=== PATIENT | female | born 1960 | race Caucasian/White ===

== ENCOUNTER 2020-03-08 11:10 | Inpatient (IN) | payer MEDICAID, OTHER ==
[~2020-03-08] VITALS: Ht 160 cm; Wt 60.5 kg
[2020-03-08] MEDS ORDERED: methylPREDNISolone SOD SUCC 125 MG/2 ML VL IV ONE (11:30)
[2020-03-08] MEDS ORDERED: MORPHINE SULFATE 4 MG/ML SYR/VIAL IV ONE (11:30)
[2020-03-08] MEDS ORDERED: AZITHROMYCIN 500MG/ 250ML 250 ML IV ONE (11:30)
[2020-03-08] MEDS ORDERED: ONDANSETRON HCL 4 MG/2 ML VIAL IV ONE (11:30)
[2020-03-08] MEDS ORDERED: ASCORBIC ACID 500 MG TAB PO ONE (11:30)
[2020-03-08] MEDS ORDERED: PANTOPRAZOLE 40 MG/10 ML VIAL INJ IV ONE (11:30)
[2020-03-08] MEDS ORDERED: ZINC SULFATE 220mg CAP or TAB PO ONE ×2 (11:30→13:00)
[2020-03-08] MEDS ORDERED: SODIUM CHLORIDE 0.9% 500 ML IV ONE ×2 (12:15→13:20)
[2020-03-08] MEDS ORDERED: ACETAMINOPHEN 325 MG TAB PO ONE (12:15)
[2020-03-08 12:24] LABS: Basophils # (auto) 0 10 ^3/uL (0-0.2); Basophils % (auto) 0.1 % (0.0-2.0); Eosinophils # (auto) 0 10 ^3/uL (0-0.8); Hematocrit 38.5 % (36.0-46.0); Hemoglobin 12.5 g/dL (12.2-16.2); Lymphocytes # (auto) 0.4 10 ^3/uL (0.4-5.4); Lymphocytes % (auto) 5.9 % (10.0-50.0); Mean Corpuscular Hemoglobin 29.6 pg (28.0-32.0); Mean Corpuscular Hgb Conc. 32.5 g/dL (32.0-36.0); Mean Corpuscular Volume 91.2 fL (80.0-100.0); Monocytes # (auto) 0.3 10 ^3/uL (0-1.3); Monocytes % (auto) 3.9 % (0.0-12.0); Neutrophils # (auto) 6.3 10 ^3/uL (1.6-8.6); Neutrophils % (auto) 90.1 % (37.0-80.0); Platelet Count (auto) 177 10^3/uL (140-450); Red Blood Cells 4.22 10^6/uL (4.0-5.20); Red Cell Distribution Width 12.8 % (11.8-14.3)
[2020-03-08] MEDS ORDERED: NITROGLYCERIN 0.4 MG SL TAB SL PRN (12:30)
[2020-03-08] MEDS ORDERED: MORPHINE SULF INJ 2 MG/ML SYRINGE 1ML IV PRN (12:30)
[2020-03-08] MEDS ORDERED: SODIUM CHLORIDE 0.9% 1,000 ML IV SCH (12:31)
[2020-03-08 12:41] LABS: Albumin 3.7 g/dL (3.4-5.0); Calcium 8.9 mg/dL (8.5-10.1); Potassium 3.5 mmol/L (3.5-5.1)
[2020-03-08 12:52] LABS: Bilirubin, Total 0.6 mg/dL (0.2-1.0); Total Protein 7.4 g/dL (6.4-8.2)
[2020-03-08] MEDS ORDERED: ASCORBIC ACID 1,000 MG TAB PO ONE (13:00)
[2020-03-08] MEDS ORDERED: CHOLECALCIFEROL (VITD3) 2,000 UNIT CAP PO ONE (13:00)
[2020-03-08] MEDS ORDERED: ENOXAPARIN SOD 40 MG/0.4 ML SYRINGE SC ONE (13:00)
[2020-03-08 13:01] LABS: CRP High Sensitivity 7.49 mg/dL (< 0.3)
[2020-03-08] MEDS ORDERED: IOHEXOL 350 MG/ML 100ML IJ ONE (13:37)
[2020-03-08] MEDS: ALBUTEROL SULF HFA 90MCG INH 200DOSE IN SCH ×2 (14:24→21:27)
[2020-03-08] MEDS: ACETAMINOPHEN 500 MG TAB PO PRN (14:38)
[2020-03-08] MEDS ORDERED: CHLO0.12 MT (14:51)
[2020-03-08] MEDS ORDERED: HYDROcodone-ACET 5/325MG TAB PO PRN (16:45)
[2020-03-08 16:50] VITALS: BP 122/76
[2020-03-08 20:00] VITALS: BP 129/81
[2020-03-08] MEDS: BUDESONIDE (INHALATION) 180 MCG IH IN SCH (21:27)
[2020-03-08 22:00] VITALS: BP 124/81
[2020-03-08] MEDS: DOXYCYCLINE 100 MG TAB/CAP PO SCH (22:06)
[2020-03-08] MEDS ORDERED: SUMAtriptan SUCCINATE 25 MG TAB PO ONE (22:30)
[2020-03-09 05:00] VITALS: BP_SYST 124; BP_SYST 133; BP_DIAS 67; BP_DIAS 99
[2020-03-09] MEDS: ALBUTEROL SULF HFA 90MCG INH 200DOSE IN SCH ×2 (07:32→15:03)
[2020-03-09] MEDS: BUDESONIDE (INHALATION) 180 MCG IH IN SCH (07:32)
[2020-03-09 08:00] VITALS: BP 132/76
[2020-03-09] MEDS: ACETAMINOPHEN 500 MG TAB PO PRN (08:37)
[2020-03-09] MEDS: DOXYCYCLINE 100 MG TAB/CAP PO SCH (09:44)
[2020-03-09] MEDS ORDERED: ASCORBIC ACID 1,000 MG TAB PO SCH (10:00)
[2020-03-09] MEDS ORDERED: ENOXAPARIN SOD 40 MG/0.4 ML SYRINGE SC SCH (10:00)
[2020-03-09] MEDS ORDERED: ZINC SULFATE 220mg CAP or TAB PO SCH (10:00)
[2020-03-09] MEDS ORDERED: CHOLECALCIFEROL (VITD3) 2,000 UNIT CAP PO SCH (10:00)
[2020-03-09] MEDS ORDERED: DexAMETHasone SOD PHOS 10MG/1ML VIAL INJ IV SCH (10:00)
[2020-03-09 12:00] VITALS: BP 121/77
[2020-03-09] MEDS ORDERED: SUMAtriptan SUCCINATE 25 MG TAB PO ONE (15:15)
[2020-03-09] MEDS ORDERED: DEXA6TAB6 PO (15:35)
[2020-03-09] MEDS ORDERED: SUMA50TA2 PO (15:35)
[2020-03-09] MEDS ORDERED: ZINCCAP PO (15:35)
[2020-03-09] MEDS ORDERED: CHOL1CAP47 PO (15:35)
[2020-03-09] MEDS ORDERED: DOX100T PO (15:35)
[2020-03-09] MEDS ORDERED: ASCO10003 PO (15:35)
[2020-03-09] MEDS ORDERED: ALBUAER3 IN (15:35)
[2020-03-09 16:38] VITALS: BP 121/77
[2020-03-09 16:52] VITALS: BP 121/77
[2020-03-09 17:42] VITALS: BP 144/83
== END 2020-03-09 18:57 | disposition home health service (06) | DRG 137 ==
LOC: ER 11:10 → EDBD 11:10 → TELE-EAST 11:11
PROVIDERS: ADMIT Internal Medicine; ATTEND Internal Medicine
DX: U07.1 COVID-19 (principal); J12.89 Other viral pneumonia; Z83.3 Family history of diabetes mellitus; Z80.9 Family history of malignant neoplasm, unspecified; R79.89 Other specified abnormal findings of blood chemistry
CPT/HCPCS: 36415; 71045; 71275; 80053; 82728; 83605; 83615; 85025; 85379; 86141; 87040; 87426; 93005; 93970; 94640; 96365; 96366; C9113; G0378; J1100; J2405